=== PATIENT | male | born 1955 | race Caucasian/White ===

== ENCOUNTER 2017-01-21 21:18 | Emergency (ER) | payer OTHER ==
--- NOTE | 2017-01-21 22:53 | DIAGNOSTIC IMAGING REPORT ---
PROCEDURE: ABDOMEN/PELVIS WITH CONTRAST CLINICAL INDICATION: Right flank pain, right lower quadrant pain, nausea TECHNIQUE: 145 ml of Isovue 300 were injected intravenously and axial images were obtained of the abdomen and pelvis with sagittal and coronal reformations. COMPARISON: 05/23/2009 FINDINGS: ABDOMEN: Laparoscopically placed gastric band in position with a normal phi angle. The stomach is distended with ingested material. Small bowel loops are decompressed. Increased amount of stool throughout the colon. Colorectal anastomoses in the left low pelvis. Multiple dependent gallstones measuring about 5 to 6 mm a piece. No pericholecystic inflammation. The common duct is normal caliber without visible choledocholithiasis. Clear lung bases. Normal sized heart. No hiatal hernia. The liver, adrenal glands, kidneys, pancreas and spleen are normal. The abdominal aorta is normal in its course and caliber. An IVC filter is in place. There are no suspicious calcifications, retroperitoneal adenopathy or masses. Multiple surgical tacks of prior ventral mid to low abdominal wall hernia repair. PELVIS: The appendix and pelvic small bowel loops are normal. Mild descending and proximal sigmoid diverticulosis without acute diverticulitis. The urinary bladder is filled and therefore suboptimally evaluated. The prostate gland, seminal vesicles, and pelvic vessels are normal. No adenopathy, free fluid, or pelvic mass. Moderate degenerative changes in both hip joints. Mild degenerative changes in the lower lumbar spine. IMPRESSION: 1. Cholelithiasis without CT evidence of acute cholecystitis. 2. Distended stomach and decompressed small bowel. This may be secondary to very recent ingestion, less likely possible mechanical gastric outlet obstruction or denervation of the stomach. 3. Gastric band in good position in the gastric cardia. 4. IVC filter, ventral hernia repair with mesh, and colorectal anastomoses. 5. Mild diverticulosis. 6. Normal appendix. 7. Discussed with Kornia Fox in the emergency room. All CT scans at this facility use dose modulation, iterative reconstruction, and/or weight-based dosing when appropriate to reduce radiation dose to as low as reasonably achievable.
--- NOTE | 2017-01-21 22:56 | ED ORDER SUMMARY ---
..... Patient: NICK ESCOBEDO OrderSheet [facility] VisitID: [id number] [place] [address] 61y, M Registration Date/Time: 01/21/2017 ORDER SHEET Weight: 113.3 kg (stated) Allergies: Sulfa Antibiotics GENERAL ORDERS: CT Abd/Pel w Cont (No) (pending) Urgent (21:01/21/2017 HBivens A.R.N.P.) (Ack 21:35 RKaruga) (22:25 CBradburn R.N.) CBC w Diff Urgent (:01/21/2017 HBivens A.R.N.P.) (Ack 21:35 RKaruga) (21:36 CBradburn R.N.) CMP Urgent (:01/21/2017 HBivens A.R.N.P.) (Ack 21:35 RKaruga) (21:36 CBradburn R.N.) UA-Culture if indicated Urgent (21:01/21/2017 HBivens A.R.N.P.) (Ack 21:35 RKaruga) (21:51 CBradburn R.N.) Amylase Urgent (:01/21/2017 HBivens A.R.N.P.) (Ack 21:35 RKaruga) (21:36 CBradburn R.N.) Lipase Urgent (:01/21/2017 HBivens A.R.N.P.) (Ack 21:35 RKaruga) (21:36 CBradburn R.N.) MEDICATION ORDERS: IV FLUIDS: IV NS : initial bolus 1000 mL (1000 mL/hr), then none - (NOW) (:01/21/2017 HBivens A.R.N.P.) (Ack 21:38 HSoule) (21:51 CBradburn R.N.) Toradol IV 30 mg (NOW) (21:01/21/2017 HBivens A.R.N.P.) (Ack 21:38 HSoule) (21:51 CBradburn R.N.) IV Saline Lock (:01/21/2017 HBivens A.R.N.P.) (21:36 Hubert R.N.) Zofran IV 4 mg (NOW) (22:56 01/21/2017 HBivens A.R.N.P.) (Ack 23:00 HSoule) (23:05 Eris R.N.) ORDER SHEET NOTES: [Electronically signed by Korina Fox A.R.N.P. (23:38 01/21/2017)] [Electronically signed by Geno Whitman (01:14 01/22/2017)] [Electronically locked/signed by Geno Whitman (01:14 01/22/2017)]
--- NOTE | 2017-01-21 22:56 | ED NURSING NOTES ---
Clinical Report - Nurses [facility] [address], [place] [address] 01/21/2017 21:18 Patient: NICK ESCOBEDO TRIAGE Triage time 21:24. Acuity: LEVEL 3. Chief Complaint: ABDOMINAL PAIN and NAUSEA and CHILLS and FLANK PAIN. --21:34 Anika Whelan R.N. 21:24 01/21/17. BP: 132/71. HR: 65. RR: 18. O2 saturation: 98%. Temp: 97.7 F. Pain level now: 02/11. --21:34 Anika Whelan R.N. Weight: 113.3 kg stated. Height/Length: 72 inches Per Patient. BMI: 33.9. --21:33 Anika Whelan R.N. Medications Coumadin Oral 10 mg, 6 times a week (12mg once a week Wednesday). --21:31 Anika Whelan R.N. Percocet Oral (Tablet 10-325 mg) 1 tablet, 3x a day. --21:31 Anika Whelan R.N. Tamsulosin HCl Oral (Capsule 0.4 mg) 1 capsule, daily. --21:32 Anika Whelan R.N. TiZANidine HCl Oral (Tablet 4 mg) 1 tablet, daily. --21:32 Anika Whelan R.N. Allergies Sulfa Antibiotics. Definite Severe(rash) --21:28 Anika Whelan R.N. History Arrived by private vehicle. Historian: patient. Accompanied by family. Primary physician (gilberto). This started today. ( right flank pain started around 530 with nausea,). PAST MEDICAL HX: Immunizations: up-to-date. SOCIAL HX: Never smoker. Occasional alcohol use; consumes wine occasionally. No drug use. No infectious disease exposure. No known contact with a sick individual. ABUSE ASSESSMENT: No report of abuse. SELF HARM ASSESSMENT: A self harm assessment was performed. The patient answered "no" to the question "Have you recently felt down, depressed, or hopeless?", "Have you noticed less interest or pleasure in doing things?", "Do you have thoughts of harming or killing yourself?", "Are you here because you tried to hurt yourself?", "Have you ever tried to hurt yourself before today?", "Have you recently had thoughts about harming or killing others?" and "Do you have any dangerous items in your possession?". FALL RISK ASSESSMENT: Fall risk assessment completed. No fall risk identified. NUTRITIONAL RISK ASSESSMENT: The nutritional risk assessment revealed no deficiencies. FUNCTIONAL ASSESSMENT: Functional assessment: no impairments noted. LEARNING NEEDS ASSESSMENT: The learning needs assessment revealed no barriers. SKIN INTEGRITY ASSESSMENT: Skin integrity risk assessment completed. No skin integrity risk identified. --21:34 Anika Whelan R.N. PROBLEMS: Diverticulitis. Factor 5. Contusion. Clavicle Fracture. Fall. Cervical Strain. Sprain. Hypertension. Tetanus Status. --21:33 Anika Whelan R.N. ADDITIONAL SURGERIES: Colon resection. Knee replacement. Lap band. neck fusion. Skin cancer surgery. --21:33 Anika Whelan R.N. Interventions ID band on patient. To treatment room. --21:34 Anika Whelan R.N. PHYSICAL ASSESSMENT To room via wheelchair. GENERAL / NEURO / PSYCH: Alert. Oriented X 4. Appears in pain. HEENT: Mucous membranes are pink. RESPIRATORY: Respirations not labored. Breath sounds within normal limits. CVS: Normal sinus rhythm noted. Capillary refill less than 2 seconds. GI / : The patient has had constant nausea. Abdomen soft. Abdominal tenderness (right flank). Bowel sounds within normal limits. SKIN: Skin is warm and dry. --21:35 Anika Whelan R.N. NURSING PROGRESS NOTES Patient gowned. Two patient identifiers checked. Call light placed in reach. Side rails up x 1. Bed placed in lowest position. Brakes of bed on. Patient ready for evaluation- chart flagged. --21:35 Anika Whelan R.N. 21:30 01/21/2017 Site #1 started via IV in the left antecubital space with an 20g angiocath, with aseptic technique and good blood return; one attempt. Blood drawn: rainbow set. Labeled in the presence of the patient and sent to the lab. Saline lock flushed with 10 mL saline. --21:35 Anika Whelan R.N. 21:51 01/21/2017 Started bag #1 1000 mL IV Fluids IV NS (Saline); bolus of 1000 mL wide open via site #1. Allergies verified and confirmed 5 rights. IV patency established. IV site checked: no pain, redness, or swelling. IV flushed thoroughly pre- and post-medication administration. --21:51 Anika Whelan R.N. 21:51 01/21/2017 Toradol IVP 30 mg given over 2 minute(s) via site #1. Allergies verified and confirmed 5 rights. IV patency established. IV site checked: no pain, redness, or swelling. IV flushed thoroughly pre- and post-medication administration. IVP given by RN. --21:51 Anika Whelan R.N. Patient returned from CT by stretcher with tech. (22:25). --22:25 Anika Whelan R.N. 23:05 01/21/2017 Zofran (Ondansetron HCl) IVP 4 mg given over 2 minute(s) via site #1. Allergies verified and confirmed 5 rights. IV patency established. IV site checked: no pain, redness, or swelling. IV flushed thoroughly pre- and post-medication administration. IVP given by RN. --23:05 Maritza Dexter R.N. DISPOSITION / DISCHARGE 23:06 01/21/2017 Site #1 removed upon discharge. Catheter intact. Bandage applied. --23:06 Maritza Dexter R.N. 23:07 01/21/2017 IV Fluids IV NS Discontinued: bag #1 completed. Total amount infused: 1000 mL. IV patency established. IV site checked: no pain, redness, or swelling. IV flushed thoroughly. --23:07 Maritza Dexter R.N. Departure time: 23:10 Jan 21 2017. Condition at departure: improved. No learning barriers present. Reviewed medication(s) side effects, precautions, dosing and course information. Prescription(s) given to the patient. Reviewed referral to a primary care physician for followup. Patient verbalized understanding. Written instructions provided in Sinhala. Discharge instructions not provided and reviewed with the patient. The patient was discharged home and accompanied by family. He left the Emergency Department in a wheelchair and via private vehicle. Family member driving. FALL RISK ASSESSMENT: Fall risk assessment completed. No fall risk identified. --23:13 Maritza Dexter R.N. 23:05 01/21/17. BP: 130/59. HR: 57. RR: 16. O2 saturation: 97%. Pain level now: 09/11. --23:13 Maritza Dexter R.N. Locked/Released at 01/22/2017 1:14 by Geno Whitman,
--- NOTE | 2017-01-21 22:56 | ED CLINICAL REPORT ---
Clinical Report - Physicians/Mid Levels [facility] [address] [place] [address] 01/21/2017 21:18 Patient: NICK ESCOBEDO Time Seen: 2125; upon arrival, initial patient contact, initial documentation, patient care assumed. Arrived- By private vehicle. Historian- patient and spouse. HISTORY OF PRESENT ILLNESS Chief Complaint: ABDOMINAL PAIN. At its maximum, severity described as moderate. When seen in the E.D., severity described as moderate. Modifying factors. Not worsened by anything. Not relieved by anything. It is described as "pain" and sharp and it is described as located in the right flank and the right abdomen and right lower quadrant and radiating to the right lower quadrant of the abdomen. This started just prior to arrival and is still present. No additional abdominal pain. Similar symptoms previously: None. Recent medical care: Not recently seen/assessed. REVIEW OF SYSTEMS No constipation, black stools, hematemesis, difficulty with urination or pain with urination. No urinary frequency, fever, chest pain or difficulty breathing. All systems otherwise negative, except as recorded above. SOCIAL HISTORY No recent travel. Is a local resident. He lives with spouse. FAMILY HISTORY Negative. ADDITIONAL NOTES The nursing notes have been reviewed with agreement regarding the chief complaint, HPI, ROS, PMH and patient medications and allergies. PHYSICAL EXAM Appearance: Alert. Oriented X3. No acute distress. Eyes: Pupils equal, round and reactive to light. Eyes normal inspection. Neck: Normal inspection. Neck supple. CVS: Normal heart rate and rhythm. Heart sounds normal. Pulses normal. Respiratory: No respiratory distress. Breath sounds normal. Chest nontender. Abdomen: Soft. Mild tenderness in the right lower quadrant. No guarding, rebound tenderness or Evans's, obturator or psoas sign present. Bowel sounds normal. No organomegaly. No mass. Tenderness present. Back: Abnormal inspection. Mild CVA tenderness on the right. Skin: Skin warm and dry. Normal skin color. No rash. Normal skin turgor. Extremities: Extremities exhibit normal ROM. No lower extremity edema. Neuro: Oriented X 3. No motor deficit. No sensory deficit. LABS, X-RAYS, AND EKG Abdominal CT: . IMPRESSION: 1. Cholelithiasis without CT evidence of acute cholecystitis. 2. Distended stomach and decompressed small bowel. This may be secondary to very recent ingestion, less likely possible mechanical gastric outlet obstruction or denervation of the stomach. 3. Gastric band in good position in the gastric cardia. 4. IVC filter, ventral hernia repair with mesh, and colorectal anastomoses. 5. Mild diverticulosis. 6. Normal appendix. 7. Discussed with Korina Fox in the emergency room. All CT scans at this facility use dose modulation, iterative reconstruction, and/or weight-based dosing when appropriate to reduce radiation dose to as low as reasonably achievable. Electronically Final signed by:Bertha Borden MD 01/21/2017 10:54:01 PM. The study was interpreted by the radiologist and discussed with the radiologist. Interpretation time: 22:50. Laboratory Tests: UA-Culture if indicated: (TAMI: 01/21/2017 21:41) ( MsgRcvd 01/21/2017 22:21) Final results Test Result Flag Units (Reference) URINE COLOR YELLOW URINE APPEARANCE CLEAR URINE GLUCOSE NEGATIVE (NEGATIVE) URINE BILIRUBIN NEGATIVE (NEGATIVE) URINE KETONE NEGATIVE (NEGATIVE) URINE SPECIFIC GRAVITY 1.020 (1.010-1.030) URINE PH 6.0 (5.0-8.0) URINE PROTEIN NEGATIVE (NEGATIVE) URINE UROBILINOGEN 0.2 EU/dL (0.2-1.0) URINE NITRITE NEGATIVE (NEGATIVE) URINE BLOOD NEGATIVE (NEGATIVE) URINE LEUK ESTERASE NEGATIVE (NEGATIVE) URINE RBC 0-1 rbc/hpf (0-1) URINE WBC 0-1 wbc/hpf (0-1) URINE EPITHELIAL CELLS 1-3 EPI/hpf (0-5) URINE BACTERIA NONE SEEN (NONE SEEN) URINE COMMENT CULT NOT INDICATED URINE CULTURES ARE SET-UP BASED ON THE FOLLOWING CRITERIA:POSITIVE NITRITEPOSITIVE LEUKOCYTE ESTERASEGREATER THAN 10 WHITE BLOOD CELLSMODERATE (2+) OR GREATER BACTERIA CBC w Diff: (TAMI: 01/21/2017 21:15) ( MsgRcvd 01/21/2017 21:39) Final results Test Result Flag Units (Reference) WHITE BLOOD COUNT 9.0 K/uL (4.5-11.5) RED BLOOD COUNT 4.71 M/uL (4.50-5.90) HEMOGLOBIN 14.4 gm/dL (13.5-17.5) HEMATOCRIT 41.6 % (41.0-53.0) MEAN CELL VOLUME 88 fL (80-100) MEAN CORPUSCULAR HGB 31 pg (26-34) MEAN CORPUSCULAR HGB CONC 35 g/dL (31-37) RED CELL DISTRIBUTION WIDTH 13.2 % (11.6-14.8) PLATELET COUNT 195 K/uL (150-400) NEUTROPHIL % 71.0 % (50-75) LYMPH % 24.3 L % (25-40) MONO % 0.7 L % (3-14) EOSINOPHIL % 4.0 % (0-4) BASOPHIL % 0 % (0-2) CMP: (TAMI: 01/21/2017 21:15) ( MsgRcvd 01/21/2017 21:56) Final results Test Result Flag Units (Reference) GLUCOSE 107 mg/dL (70-110) BUN 18 mg/dL (7-18) CREATININE 1.5 H mg/dL (0.6-1.3) Estimated GFR 50.57 mL/min Estimated GFR- >60 mL/min Note: Persistent reduction over 3 months in eGFR<60 mL/min/1.73 m2 defines CKD. Patients with eGFR values>=60 mL/min/1.73 m2 may also have CKD if evidence ofpersistent proteinuria. Additional information may be foundat www.kidney.org. SODIUM 140 mmol/L (136-145) POTASSIUM 4.2 mmol/L (3.5-5.1) CHLORIDE 104 mmol/L (98-107) CARBON DIOXIDE 30 mmol/L (21-32) CALCIUM 9.0 mg/dL (8.5-10.1) TOTAL PROTEIN 7.1 g/dL (6.4-8.2) ALBUMIN 4.0 g/dL (3.3-5.0) BILIRUBIN, TOTAL 0.4 mg/dL (0.0-1.0) ALKALINE PHOSPHATASE 75 U/L (46-116) AST (SGOT) 29 U/L (15-37) ALT (SGPT) 38 U/L (12-78) LIPASE 173 U/L (73-393) AMYLASE 113 U/L (25-115) . PROGRESS AND PROCEDURES Patient and family counseled in person regarding the patient's stable condition, test results and diagnosis. 2250. Differential Diagnosis: I considered gastritis, gastroenteritis, peptic ulcer disease, gastroesophageal reflux disease, acute appendicitis, diverticulitis, colon cancer, ulcerative colitis, Crohn's disease, biliary colic, cholecystitis, cholelithiasis, hepatitis, pancreatitis, common bile duct obstruction, urinary tract infection, ureterolithiasis and viral syndrome as a possible cause of abdominal pain in this patient. This is a partial list of diagnoses considered. Above considerations are based on history, physical exam, reassessment, laboratory data and other information. Differential diagnosis was discussed with patient and patient's spouse. Disposition: Discharged home in good and improved condition (22:56). Condition: good and stable. CLINICAL IMPRESSION Cholelithiasis. No obstruction or cholecystitis. INSTRUCTIONS Avoid fatty and fried/greasy foods. Warnings: GENERAL WARNINGS: Return or contact your physician immediately if your condition worsens or changes unexpectedly, if not improving as expected, or if other problems arise. SPECIFICALLY, return if you develop pain in the abdomen or pelvis, fever, the inability to keep fluids down, blood in vomitus, blood in diarrhea, fainting or lightheadedness. Prescription Medications: Zofran 4 mg: Take 1 orally every six hours as needed for nausea/vomiting. Dispense ten (10). No refills. Substitution is permissible. Ultram 50 mg tablets: take 1-2 orally every 6 hours as needed for pain. Dispense twenty (20). No refills. Substitution is permissible. Follow-up: Follow up with your doctor in about two days even if well. Call for an appointment. Summary of care provided to patient. Understanding of the discharge instructions verbalized by patient. (Electronically signed by Korina Fox A.R.N.P. 01/21/2017 23:38)
--- NOTE | 2017-01-21 22:56 | ED ORDER SUMMARY ---
..... Patient: NICK ESCOBEDO OrderSheet [facility] VisitID: [id number] [place] [address] 61y, M Registration Date/Time: 01/21/2017 ORDER SHEET Weight: 113.3 kg (stated) Allergies: Sulfa Antibiotics GENERAL ORDERS: CT Abd/Pel w Cont (No) (pending) Urgent (21:01/21/2017 HBivens A.R.N.P.) (Ack 21:35 RKaruga) (22:25 CBradburn R.N.) CBC w Diff Urgent (:01/21/2017 HBivens A.R.N.P.) (Ack 21:35 RKaruga) (21:36 CBradburn R.N.) CMP Urgent (:01/21/2017 HBivens A.R.N.P.) (Ack 21:35 RKaruga) (21:36 CBradburn R.N.) UA-Culture if indicated Urgent (21:01/21/2017 HBivens A.R.N.P.) (Ack 21:35 RKaruga) (21:51 CBradburn R.N.) Amylase Urgent (:01/21/2017 HBivens A.R.N.P.) (Ack 21:35 RKaruga) (21:36 CBradburn R.N.) Lipase Urgent (:01/21/2017 HBivens A.R.N.P.) (Ack 21:35 RKaruga) (21:36 CBradburn R.N.) MEDICATION ORDERS: IV FLUIDS: IV NS : initial bolus 1000 mL (1000 mL/hr), then none - (NOW) (:01/21/2017 HBivens A.R.N.P.) (Ack 21:38 HSoule) (21:51 CBradburn R.N.) Toradol IV 30 mg (NOW) (21:01/21/2017 HBivens A.R.N.P.) (Ack 21:38 HSoule) (21:51 CBradburn R.N.) IV Saline Lock (:01/21/2017 HBivens A.R.N.P.) (21:36 Hubert R.N.) Zofran IV 4 mg (NOW) (22:56 01/21/2017 HBivens A.R.N.P.) (Ack 23:00 HSoule) (23:05 Eris R.N.) ORDER SHEET NOTES: [Electronically signed by Korina Fox A.R.N.P. (23:38 01/21/2017)] [Electronically signed by Geno Whitman (01:14 01/22/2017)] [Electronically locked/signed by Geno Whitman (01:14 01/22/2017)]
--- NOTE | 2017-01-22 01:14 | ED MED RECONCILIATION SUMMARY ---
Patient: NICK ESCOBEDO Medication Reconciliation Report [facility] VisitID: [id number] [address] [place] [address] 61y, M Registration Date/Time: 01/21/2017 Weight: 113.3 kg Height/Length: 72 in. BMI: 33.9 ALLERGIES: Sulfa Antibiotics The patient's Home Medications are listed below: THE FOLLOWING MEDICATIONS NEED TO BE RECONCILED: Coumadin Oral 10 mg, 6 times a week, 12mg once a week Wednesday Percocet Oral (10-325 mg) 1 tablet, 3x a day Tamsulosin HCl Oral (0.4 mg) 1 capsule, daily TiZANidine HCl Oral (4 mg) 1 tablet, daily The source(s) of the original Home Medication information: Not obtained. The following Medications were given to the patient in the Emergency Department: IV NS IV Fluids bolus 1000 mL wide open, administered: 01/21/2017 9:51:00 PM Toradol [IVP] IVP 30 mg, administered: 01/21/2017 9:51:00 PM Zofran [IVP] IVP 4 mg, administered: 01/21/2017 11:05:00 PM The following Medications were prescribed to the patient: Zofran 4 mg: Take 1 orally every six hours as needed for nausea/vomiting. Dispense ten (10). No refills. Substitution is permissible. -- Korina Fox, Manjeet.R.N.P. Ultram 50 mg tablets: take 1-2 orally every 6 hours as needed for pain. Dispense twenty (20). No refills. Substitution is permissible. -- Korina Fox A.R.N.P.
--- NOTE | 2017-01-22 01:14 | ED MAR SUMMARY ---
..... Medication Administration Record [facility] [address] [place] [address] Patient: NICK ESCOBEDO Visit ID: [id number] 61y, M Weight: 113.3 kg Height/Length: 72 in BMI: 33.9 ALLERGIES: Sulfa Antibiotics Start 21:51 01/21/2017 Anika Whelan R.N., Stop 23:07 01/21/2017 Maritza Dexter R.N. Medication Administered: IV NS (SALINE), Dose: IV Fluids, Bolus: 1000 mL wide open, Dispensed: 1000 mL bag, Site: #1 left AC. Medication Ordered: IV NS : initial bolus 1000 mL (1000 mL/hr), then none - (NOW). Given 21:51 01/21/2017 Anika Whelan R.N. Medication Administered: TORADOL [IVP], Dose: 30 mg IVP over 2 minute(s), Site: #1 left AC. Medication Ordered: Toradol IV 30 mg (NOW). Given 23:05 01/21/2017 Maritza Dexter R.N. Medication Administered: ZOFRAN [IVP] (ONDANSETRON HCL), Dose: 4 mg IVP over 2 minute(s), Site: #1 left AC. Medication Ordered: Zofran IV 4 mg (NOW).
--- NOTE | 2017-01-22 01:14 | ED DISCHARGE INSTRUCTIONS ---
Patient: NICK ESCOBEDO General Instructions [facility] VisitID: [id number] [place] [address] 61y, M Registration Date/Time: 01/21/2017 Cholelithiasis. No obstruction or cholecystitis. INSTRUCTIONS Avoid fatty and fried/greasy foods. Warnings: GENERAL WARNINGS: Return or contact your physician immediately if your condition worsens or changes unexpectedly, if not improving as expected, or if other problems arise. SPECIFICALLY, return if you develop pain in the abdomen or pelvis, fever, the inability to keep fluids down, blood in vomitus, blood in diarrhea, fainting or lightheadedness. Prescription Medications: Zofran 4 mg: Take 1 orally every six hours as needed for nausea/vomiting. Dispense ten (10). No refills. Substitution is permissible. Ultram 50 mg tablets: take 1-2 orally every 6 hours as needed for pain. Dispense twenty (20). No refills. Substitution is permissible. Follow-up: Follow up with your doctor in about two days even if well. Call for an appointment. Summary of care provided to patient. Understanding of the discharge instructions verbalized by patient. ADDITIONAL INFORMATION GallstonesWith Biliary Colic [Confirmed Dx] The abdominal pain that you have today is due to spasm of the gallbladder. The gallbladder is a small sac under the liver which stores and releases bile. Bile is a fluid that aids in the digestion of fat. A gallstone may form inside the gallbladder and block the flow of bile fluid. This causes mild to severe crampy pain in the mid or right upper abdomen with nausea and vomiting. Home Care: Rest in bed and follow a clear liquid diet until feeling better. If pain or nausea medicine was given to help with your symptoms, take these as directed. Fat in your diet makes the gallbladder contract and may cause increased pain. Therefore, avoid fat in your diet over the next two days and follow a low-fat diet after that. If you are overweight, a low-fat diet will also help you lose weight. Follow Up with your doctor. There is a 50% chance that you will have another episode of pain from your gallstones during the next 2 years. Removal of the gallbladder is the treatment of choice to prevent this. Schedule an appointment with your own doctor during the next week to discuss the treatment options. Get Prompt Medical Attention if any of the following occur: Pain gets worse or moves to the right lower abdomen Repeated vomiting Swelling of the abdomen Pain lasts over 6 hours Fever of 100.4F (38C) or higher, or as directed by your healthcare provider Weakness, dizziness or fainting Dark urine or light colored stools Yellow color of the skin or eyes Chest, arm, back, neck or jaw pain Ondansetron Oral disintegrating tablet What is this medicine? ONDANSETRON (on KATIUSKA se daniel) is used to treat nausea and vomiting caused by chemotherapy. It is also used to prevent or treat nausea and vomiting after surgery. How should I use this medicine? These tablets are made to dissolve in the mouth. Do not try to push the tablet through the foil backing. With dry hands, peel away the foil backing and gently remove the tablet. Place the tablet in the mouth and allow it to dissolve, then swallow. While you may take these tablets with water, it is not necessary to do so. Talk to your model home sales greeter regarding the use of this medicine in children. Special care may be needed. What side effects may I notice from receiving this medicine? Side effects that you should report to your doctor or health post acute care registered nurse as soon as possible: allergic reactions like skin rash, itching or hives, swelling of the face, lips, or tongue breathing problems dizziness fast or irregular heartbeat feeling faint or lightheaded, falls fever and chills swelling of the hands and feet tightness in the chest Side effects that usually do not require medical attention (report to your doctor or health post acute care registered nurse if they continue or are bothersome): constipation or diarrhea headache What may interact with this medicine? Do not take this medicine with any of the following medications: -apomorphine -cisapride -dofetilide -dronedarone -pimozide -thioridazine -ziprasidone This medicine may also interact with the following medications: -carbamazepine -phenytoin -rifampicin -tramadol -other medicines that prolong the QT interval (cause an abnormal heart rhythm) What if I miss a dose? If you miss a dose, take it as soon as you can. If it is almost time for your next dose, take only that dose. Do not take double or extra doses. Where should I keep my medicine? Keep out of the reach of children. Store between 2 and 30 degrees C (36 and 86 degrees F). Throw away any unused medicine after the expiration date. What should I tell my health care provider before I take this medicine? They need to know if you have any of these conditions: heart disease history of irregular heartbeat liver disease low levels of magnesium or potassium in the blood an unusual or allergic reaction to ondansetron, granisetron, other medicines, foods, dyes, or preservatives or trying to get breast-feeding What should I watch for while using this medicine? Check with your doctor or health post acute care registered nurse as soon as you can if you have any sign of an allergic reaction. Tramadol Hydrochloride Oral tablet What is this medicine? TRAMADOL (TRA ma dole) is a pain reliever. It is used to treat moderate to severe pain in adults. How should I use this medicine? Take this medicine by mouth with a full glass of water. Follow the directions on the prescription label. If the medicine upsets your stomach, take it with food or milk. Do not take more medicine than you are told to take. Talk to your model home sales greeter regarding the use of this medicine in children. Special care may be needed. What side effects may I notice from receiving this medicine? Side effects that you should report to your doctor or health post acute care registered nurse as soon as possible: allergic reactions like skin rash, itching or hives, swelling of the face, lips, or tongue breathing difficulties, wheezing confusion itching light headedness or fainting spells redness, blistering, peeling or loosening of the skin, including inside the mouth seizures Side effects that usually do not require medical attention (report to your doctor or health post acute care registered nurse if they continue or are bothersome): constipation dizziness drowsiness headache nausea, vomiting What may interact with this medicine? Do not take this medicine with any of the following medications: MAOIs like Carbex, Eldepryl, Marplan, Nardil, and Parnate This medicine may also interact with the following medications: alcohol or medicines that contain alcohol antihistamines benzodiazepines bupropion carbamazepine or oxcarbazepine clozapine cyclobenzaprine digoxin furazolidone linezolid medicines for depression, anxiety, or psychotic disturbances medicines for migraine headache like almotriptan, eletriptan, frovatriptan, naratriptan, rizatriptan, sumatriptan, zolmitriptan medicines for pain like pentazocine, buprenorphine, butorphanol, meperidine, nalbuphine, and propoxyphene medicines for sleep muscle relaxants naltrexone phenobarbital phenothiazines like perphenazine, thioridazine, chlorpromazine, mesoridazine, fluphenazine, prochlorperazine, promazine, and trifluoperazine procarbazine warfarin What if I miss a dose? If you miss a dose, take it as soon as you can. If it is almost time for your next dose, take only that dose. Do not take double or extra doses. Where should I keep my medicine? Keep out of the reach of children. Store at room temperature between 15 and 30 degrees C (59 and 86 degrees F). Keep container tightly closed. Throw away any unused medicine after the expiration date. What should I tell my health care provider before I take this medicine? They need to know if you have any of these conditions: brain tumor depression drug abuse or addiction head injury if you frequently drink alcohol containing drinks kidney disease or trouble passing urine liver disease lung disease, asthma, or breathing problems seizures or epilepsy suicidal thoughts, plans, or attempt; a previous suicide attempt by you or a family member an unusual or allergic reaction to tramadol, codeine, other medicines, foods, dyes, or preservatives or trying to get breast-feeding What should I watch for while using this medicine? Tell your doctor or health post acute care registered nurse if your pain does not go away, if it gets worse, or if you have new or a different type of pain. You may develop tolerance to the medicine. Tolerance means that you will need a higher dose of the medicine for pain relief. Tolerance is normal and is expected if you take this medicine for a long time. Do not suddenly stop taking your medicine because you may develop a severe reaction. Your body becomes used to the medicine. This does NOT mean you are addicted. Addiction is a behavior related to getting and using a drug for a non-medical reason. If you have pain, you have a medical reason to take pain medicine. Your doctor will tell you how much medicine to take. If your doctor wants you to stop the medicine, the dose will be slowly lowered over time to avoid any side effects. You may get drowsy or dizzy. Do not drive, use machinery, or do anything that needs mental alertness until you know how this medicine affects you. Do not stand or sit up quickly, especially if you are an older patient. This reduces the risk of dizzy or fainting spells. Alcohol can increase or decrease the effects of this medicine. Avoid alcoholic drinks. You may have constipation. Try to have a bowel movement at least every 2 to 3 days. If you do not have a bowel movement for 3 days, call your doctor or health post acute care registered nurse. Your mouth may get dry. Chewing sugarless gum or sucking hard candy, and drinking plenty of water may help. Contact your doctor if the problem does not go away or is severe. You have been given the following additional information: Biliary Colic With Gallstone (Confirmed) Ondansetron Oral disintegrating tablet Tramadol Hydrochloride Oral tablet (Electronically signed by Korina Fox A.R.N.P. 01/21/2017 23:38)
--- NOTE | 2017-01-22 01:14 | ED DISCHARGE INSTRUCTIONS ---
Patient: NICK ESCOBEDO General Instructions [facility] VisitID: [id number] [place] [address] 61y, M Registration Date/Time: 01/21/2017 Cholelithiasis. No obstruction or cholecystitis. INSTRUCTIONS Avoid fatty and fried/greasy foods. Warnings: GENERAL WARNINGS: Return or contact your physician immediately if your condition worsens or changes unexpectedly, if not improving as expected, or if other problems arise. SPECIFICALLY, return if you develop pain in the abdomen or pelvis, fever, the inability to keep fluids down, blood in vomitus, blood in diarrhea, fainting or lightheadedness. Prescription Medications: Zofran 4 mg: Take 1 orally every six hours as needed for nausea/vomiting. Dispense ten (10). No refills. Substitution is permissible. Ultram 50 mg tablets: take 1-2 orally every 6 hours as needed for pain. Dispense twenty (20). No refills. Substitution is permissible. Follow-up: Follow up with your doctor in about two days even if well. Call for an appointment. Summary of care provided to patient. Understanding of the discharge instructions verbalized by patient. ADDITIONAL INFORMATION GallstonesWith Biliary Colic [Confirmed Dx] The abdominal pain that you have today is due to spasm of the gallbladder. The gallbladder is a small sac under the liver which stores and releases bile. Bile is a fluid that aids in the digestion of fat. A gallstone may form inside the gallbladder and block the flow of bile fluid. This causes mild to severe crampy pain in the mid or right upper abdomen with nausea and vomiting. Home Care: Rest in bed and follow a clear liquid diet until feeling better. If pain or nausea medicine was given to help with your symptoms, take these as directed. Fat in your diet makes the gallbladder contract and may cause increased pain. Therefore, avoid fat in your diet over the next two days and follow a low-fat diet after that. If you are overweight, a low-fat diet will also help you lose weight. Follow Up with your doctor. There is a 50% chance that you will have another episode of pain from your gallstones during the next 2 years. Removal of the gallbladder is the treatment of choice to prevent this. Schedule an appointment with your own doctor during the next week to discuss the treatment options. Get Prompt Medical Attention if any of the following occur: Pain gets worse or moves to the right lower abdomen Repeated vomiting Swelling of the abdomen Pain lasts over 6 hours Fever of 100.4F (38C) or higher, or as directed by your healthcare provider Weakness, dizziness or fainting Dark urine or light colored stools Yellow color of the skin or eyes Chest, arm, back, neck or jaw pain Ondansetron Oral disintegrating tablet What is this medicine? ONDANSETRON (on KATIUSKA se daniel) is used to treat nausea and vomiting caused by chemotherapy. It is also used to prevent or treat nausea and vomiting after surgery. How should I use this medicine? These tablets are made to dissolve in the mouth. Do not try to push the tablet through the foil backing. With dry hands, peel away the foil backing and gently remove the tablet. Place the tablet in the mouth and allow it to dissolve, then swallow. While you may take these tablets with water, it is not necessary to do so. Talk to your ingredient mixer regarding the use of this medicine in children. Special care may be needed. What side effects may I notice from receiving this medicine? Side effects that you should report to your doctor or health plant care worker as soon as possible: allergic reactions like skin rash, itching or hives, swelling of the face, lips, or tongue breathing problems dizziness fast or irregular heartbeat feeling faint or lightheaded, falls fever and chills swelling of the hands and feet tightness in the chest Side effects that usually do not require medical attention (report to your doctor or health plant care worker if they continue or are bothersome): constipation or diarrhea headache What may interact with this medicine? Do not take this medicine with any of the following medications: -apomorphine -cisapride -dofetilide -dronedarone -pimozide -thioridazine -ziprasidone This medicine may also interact with the following medications: -carbamazepine -phenytoin -rifampicin -tramadol -other medicines that prolong the QT interval (cause an abnormal heart rhythm) What if I miss a dose? If you miss a dose, take it as soon as you can. If it is almost time for your next dose, take only that dose. Do not take double or extra doses. Where should I keep my medicine? Keep out of the reach of children. Store between 2 and 30 degrees C (36 and 86 degrees F). Throw away any unused medicine after the expiration date. What should I tell my health care provider before I take this medicine? They need to know if you have any of these conditions: heart disease history of irregular heartbeat liver disease low levels of magnesium or potassium in the blood an unusual or allergic reaction to ondansetron, granisetron, other medicines, foods, dyes, or preservatives or trying to get breast-feeding What should I watch for while using this medicine? Check with your doctor or health plant care worker as soon as you can if you have any sign of an allergic reaction. Tramadol Hydrochloride Oral tablet What is this medicine? TRAMADOL (TRA ma dole) is a pain reliever. It is used to treat moderate to severe pain in adults. How should I use this medicine? Take this medicine by mouth with a full glass of water. Follow the directions on the prescription label. If the medicine upsets your stomach, take it with food or milk. Do not take more medicine than you are told to take. Talk to your ingredient mixer regarding the use of this medicine in children. Special care may be needed. What side effects may I notice from receiving this medicine? Side effects that you should report to your doctor or health plant care worker as soon as possible: allergic reactions like skin rash, itching or hives, swelling of the face, lips, or tongue breathing difficulties, wheezing confusion itching light headedness or fainting spells redness, blistering, peeling or loosening of the skin, including inside the mouth seizures Side effects that usually do not require medical attention (report to your doctor or health plant care worker if they continue or are bothersome): constipation dizziness drowsiness headache nausea, vomiting What may interact with this medicine? Do not take this medicine with any of the following medications: MAOIs like Carbex, Eldepryl, Marplan, Nardil, and Parnate This medicine may also interact with the following medications: alcohol or medicines that contain alcohol antihistamines benzodiazepines bupropion carbamazepine or oxcarbazepine clozapine cyclobenzaprine digoxin furazolidone linezolid medicines for depression, anxiety, or psychotic disturbances medicines for migraine headache like almotriptan, eletriptan, frovatriptan, naratriptan, rizatriptan, sumatriptan, zolmitriptan medicines for pain like pentazocine, buprenorphine, butorphanol, meperidine, nalbuphine, and propoxyphene medicines for sleep muscle relaxants naltrexone phenobarbital phenothiazines like perphenazine, thioridazine, chlorpromazine, mesoridazine, fluphenazine, prochlorperazine, promazine, and trifluoperazine procarbazine warfarin What if I miss a dose? If you miss a dose, take it as soon as you can. If it is almost time for your next dose, take only that dose. Do not take double or extra doses. Where should I keep my medicine? Keep out of the reach of children. Store at room temperature between 15 and 30 degrees C (59 and 86 degrees F). Keep container tightly closed. Throw away any unused medicine after the expiration date. What should I tell my health care provider before I take this medicine? They need to know if you have any of these conditions: brain tumor depression drug abuse or addiction head injury if you frequently drink alcohol containing drinks kidney disease or trouble passing urine liver disease lung disease, asthma, or breathing problems seizures or epilepsy suicidal thoughts, plans, or attempt; a previous suicide attempt by you or a family member an unusual or allergic reaction to tramadol, codeine, other medicines, foods, dyes, or preservatives or trying to get breast-feeding What should I watch for while using this medicine? Tell your doctor or health plant care worker if your pain does not go away, if it gets worse, or if you have new or a different type of pain. You may develop tolerance to the medicine. Tolerance means that you will need a higher dose of the medicine for pain relief. Tolerance is normal and is expected if you take this medicine for a long time. Do not suddenly stop taking your medicine because you may develop a severe reaction. Your body becomes used to the medicine. This does NOT mean you are addicted. Addiction is a behavior related to getting and using a drug for a non-medical reason. If you have pain, you have a medical reason to take pain medicine. Your doctor will tell you how much medicine to take. If your doctor wants you to stop the medicine, the dose will be slowly lowered over time to avoid any side effects. You may get drowsy or dizzy. Do not drive, use machinery, or do anything that needs mental alertness until you know how this medicine affects you. Do not stand or sit up quickly, especially if you are an older patient. This reduces the risk of dizzy or fainting spells. Alcohol can increase or decrease the effects of this medicine. Avoid alcoholic drinks. You may have constipation. Try to have a bowel movement at least every 2 to 3 days. If you do not have a bowel movement for 3 days, call your doctor or health plant care worker. Your mouth may get dry. Chewing sugarless gum or sucking hard candy, and drinking plenty of water may help. Contact your doctor if the problem does not go away or is severe. You have been given the following additional information: Biliary Colic With Gallstone (Confirmed) Ondansetron Oral disintegrating tablet Tramadol Hydrochloride Oral tablet (Electronically signed by Korina Fox A.R.N.P. 01/21/2017 23:38)
--- NOTE | 2017-01-22 01:14 | ED MED RECONCILIATION SUMMARY ---
Patient: NICK ESCOBEDO Medication Reconciliation Report [facility] VisitID: [id number] [address] [place] [address] 61y, M Registration Date/Time: 01/21/2017 Weight: 113.3 kg Height/Length: 72 in. BMI: 33.9 ALLERGIES: Sulfa Antibiotics The patient's Home Medications are listed below: THE FOLLOWING MEDICATIONS NEED TO BE RECONCILED: Coumadin Oral 10 mg, 6 times a week, 12mg once a week Wednesday Percocet Oral (10-325 mg) 1 tablet, 3x a day Tamsulosin HCl Oral (0.4 mg) 1 capsule, daily TiZANidine HCl Oral (4 mg) 1 tablet, daily The source(s) of the original Home Medication information: Not obtained. The following Medications were given to the patient in the Emergency Department: IV NS IV Fluids bolus 1000 mL wide open, administered: 01/21/2017 9:51:00 PM Toradol [IVP] IVP 30 mg, administered: 01/21/2017 9:51:00 PM Zofran [IVP] IVP 4 mg, administered: 01/21/2017 11:05:00 PM The following Medications were prescribed to the patient: Zofran 4 mg: Take 1 orally every six hours as needed for nausea/vomiting. Dispense ten (10). No refills. Substitution is permissible. -- Korina Fox, Manjeet.R.N.P. Ultram 50 mg tablets: take 1-2 orally every 6 hours as needed for pain. Dispense twenty (20). No refills. Substitution is permissible. -- Korina Fox A.R.N.P.
--- NOTE | 2017-01-22 01:14 | ED MAR SUMMARY ---
..... Medication Administration Record [facility] [address] [place] [address] Patient: NICK ESCOBEDO Visit ID: [id number] 61y, M Weight: 113.3 kg Height/Length: 72 in BMI: 33.9 ALLERGIES: Sulfa Antibiotics Start 21:51 01/21/2017 Anika Whelan R.N., Stop 23:07 01/21/2017 Maritza Dexter R.N. Medication Administered: IV NS (SALINE), Dose: IV Fluids, Bolus: 1000 mL wide open, Dispensed: 1000 mL bag, Site: #1 left AC. Medication Ordered: IV NS : initial bolus 1000 mL (1000 mL/hr), then none - (NOW). Given 21:51 01/21/2017 Anika Whelan R.N. Medication Administered: TORADOL [IVP], Dose: 30 mg IVP over 2 minute(s), Site: #1 left AC. Medication Ordered: Toradol IV 30 mg (NOW). Given 23:05 01/21/2017 Maritza Dexter R.N. Medication Administered: ZOFRAN [IVP] (ONDANSETRON HCL), Dose: 4 mg IVP over 2 minute(s), Site: #1 left AC. Medication Ordered: Zofran IV 4 mg (NOW).
== END 2017-01-21 23:10 | disposition home or self-care (01) ==
LOC: ED SRH 21:18
DX: K80.20 Calculus of gallbladder without cholecystitis without obstruction (principal); I10 Essential (primary) hypertension; D68.51 Activated protein C resistance; Z79.01 Long term (current) use of anticoagulants; Z79.891 Long term (current) use of opiate analgesic; Z79.899 Other long term (current) drug therapy; Z88.2 Allergy status to sulfonamides
CPT/HCPCS: 90004; 90100; 92235; 92530; 95059